=== PATIENT | female | born 1960 | race Caucasian/White ===

== ENCOUNTER 2018-02-18 21:05 | Emergency (ER) | payer OTHER ==
[~2018-02-18] VITALS: Ht 162.6 cm; Wt 21.3 kg
[2018-02-18 21:05] VITALS: BP 129/80
[~2018-02-18 21:05] MED LIST: ASPI325T8 PO; ATOR10TA PO; DIAZ5TAB PO; FENO48TA16 PO; SERT100T PO; ZOLP5TAB PO; [UNRECOGNIZED DRUG - OTHER]
[2018-02-18] MEDS ORDERED: ONDANSETRON ODT 4 MG TAB.RAPDIS PO ONE (21:30)
[2018-02-18] MEDS ORDERED: ONDA4TAB7 PO (21:39)
[2018-02-18] MEDS ORDERED: BUTA1CAP31 PO (21:39)
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
== END 2018-02-18 22:00 | disposition home or self-care (01) ==
LOC: ER 21:05
DX: S16.1XXA Strain of muscle, fascia and tendon at neck level, initial encounter (principal); R51 Headache; R11.0 Nausea; F41.9 Anxiety disorder, unspecified; E78.00 Pure hypercholesterolemia, unspecified; V89.2XXA Person injured in unspecified motor-vehicle accident, traffic, initial encounter; Y93.I9 Activity, other involving external motion; Y92.89 Other specified places as the place of occurrence of the external cause; Y99.8 Other external cause status
CPT/HCPCS: 99283; Q0162